=== PATIENT | male | born 1945 | race Caucasian/White ===

== ENCOUNTER 2017-09-01 16:04 | Emergency (ER) | payer OTHER, MEDICARE ==
--- NOTE | 2017-09-01 17:11 | EDPHY ---
H & P Time Seen by Provider: 09/01/17 16:54 HPI/ROS: CHIEF COMPLAINT: Visual change in right eye HISTORY OF PRESENT ILLNESS: 72-year-old male with a history of vitreous detachment presents with a visual change in his right eye. 2 days ago, he noticed a fuchs oval patch in the lower aspect of his right visual field, with flashes just above the fuchs area. This visual change has been constant since then, without change. He did a Google search and became quite concerned about a retinal detachment. REVIEW OF SYSTEMS: Constitutional: No fever, no chills ENT: No sore throat Respiratory: No cough, no shortness of breath Cardiac: No chest pain Gastrointestinal: no vomiting, no abdominal pain Genitourinary: No no dysuria Musculoskeletal: No myalgias Skin: No rash Neurological: No headache, no numbness, no weakness Psychiatric: No depression Past Medical/Surgical History: Vitreous detachment Hypothyroidism Social History: Smoking Status: Former smoker Physical Exam: Visual Acuity: noted from Nurse's notes. Lids: no proptosis, no periorbital erythema or swelling, no vesicles Conjunctivae: No erythema, no discharge Pupils:equal round and reactive to light EOMI Cornea: Normal Anterior chamber:Clear, no hyphema Constitutional: Initial Vital Signs Heart Rate 67 09/01/17 16:08 Respiratory Rate 18 09/01/17 16:08 Blood Pressure 152/79 H 09/01/17 16:08 O2 Sat (%) 95 09/01/17 16:08 O2 Delivery Mode Room Air Medical Decision Making ED Course/Re-evaluation: 1700: Pt's restaurant manager, Dr. Archuleta, paged at the patient's request. d/ w Dr. Pride at [facility], suggests pt go to [facility]. d/w pt, does not want to drive to [place]. 1745: director call restaurant manager paged. Consulted Dr. Buenrostro, will see pt in office on Sunday. Differential Diagnosis: includes though not limited to retinal detachment, acute glaucoma, vitreous hemorrhage, corneal abrasion, iritis Departure - Departure Disposition: Home, Routine, Self-Care Clinical Impression: Visual changes Condition: Good Instructions: Visual Floaters (ED) Referrals: Loreto Muñoz MD [Primary Care Provider] - As per Instructions Abigail Buenrostro MD [Non Staff Provider ()] - As per Instructions (Dr. Buenrostro will see you in the office on Sunday at 10am. Her office is at [address] [place] [address] in [place]. If you have worsening symptoms over the weekend, call her office number and leave a message.)
[2017-09-01 18:29] VITALS: BP 143/86
== END 2017-09-01 18:27 | disposition home or self-care (01) ==
DX: H53.8 Other visual disturbances (principal); Z87.891 Personal history of nicotine dependence